=== PATIENT | female | born 1980 | race Caucasian/White ===

== ENCOUNTER 2017-06-04 14:46 | Emergency (ER) | payer MEDICAID ==
[2017-06-04 15:40] VITALS: BP 137/106
[2017-06-04] MEDS ORDERED: Acetaminophen/HYDROcodone 325-5 MG Tab PO ONE (16:47)
--- NOTE | 2017-06-04 16:51 | EDM.PDOC ---
ED HPI GENERAL MEDICAL PROBLEM - General Chief Complaint: Lower Extremity Injury/Pain Stated Complaint: RIGHT FOOT INJURY Time Seen by Provider: 06/04/17 16:44 Source of Information: Reports: Patient History Limitations: Reports: No Limitations - History of Present Illness INITIAL COMMENTS - FREE TEXT/NARRATIVE: Patient is a 36-year-old female who presents to the ED complaining of pain to the dorsal and plantar aspect of the right foot after stepping on a toy this past week. Patient states on Tuesday she stepped on the same toy while getting ready to go to bed. Throughout the course of the week she has been limping on the affected foot. Barely able to put any weight on it. Again night she stepped on the same toy and the symptoms have worsened. She has no prior injury to the affected foot. No bruising, swelling, open wounds present. She has been utilizing ice, ibuprofen, Tylenol, and pain cream with minimal relief. She offers no additional complaints. Right Feet Pain Score (Numeric/FACES): 4 - Related Data Allergies Allergy/AdvReac Type Severity Reaction Status Date / Time ciprofloxacin [From Cipro] Allergy Hives Verified 05/23/15 12:31 ciprofloxacin HCl Allergy Hives Verified 05/23/15 12:31 [From Cipro] nitrofurantoin Allergy Hives Verified 05/23/15 12:31 [From Macrobid] nitrofurantoin Allergy Hives Verified 05/23/15 12:31 macrocrystalline [From Macrobid] Sulfa (Sulfonamide Allergy Hives Verified 05/23/15 12:31 Antibiotics) venom-honey bee Allergy Shortness Verified 05/23/15 12:31 [bee venom (honey bee)] of Breath bee Allergy Shortness Uncoded 05/23/15 12:31 of Breath Home Meds: Home Meds Omeprazole [Prilosec] 20 mg PO DAILY #14 capsule. 10/11/14 [Rx] Past Medical History Respiratory History: Reports: Sleep Apnea Musculoskeletal History: Reports: Other (See Below) Other Musculoskeletal History: RIGHT KNEE SURGERY - Past Surgical History Other HEENT Surgeries/Procedures: nose surgery Female Surgical History: Reports: Section Social & Family History - Tobacco Use Smoking Status *Q: Current Some Day Smoker Years of Tobacco use: 1 Packs/Tins Daily: 0.1 Used Tobacco, but Quit: No Second Hand Smoke Exposure: No - Caffeine Use Caffeine Use: Reports: Coffee, Tea - Recreational Drug Use Recreational Drug Use: No Review of Systems - Review of Systems Review Of Systems: See Below Musculoskeletal: Reports: Foot Pain. Denies: Leg Pain Neurological: Reports: Difficulty Walking. Denies: Numbness, Tingling ED EXAM, GENERAL - Physical Exam Exam: See Below Exam Limited By: No Limitations General Appearance: Alert, WD/WN, No Apparent Distress Ears: Hearing Grossly Normal Nose: Normal Inspection Throat/Mouth: Normal Voice, No Airway Compromise Respiratory/Chest: No Respiratory Distress, No Accessory Muscle Use Cardiovascular: Normal Peripheral Pulses, Regular Rate, Rhythm Peripheral Pulses: 2+: Posterior Tibial (R) Extremities: Other (Right foot: No swelling, ecchymosis, bony abdomen is present. Increasing pain along metatarsals and also to the ball the foot. No open wounds present. No swelling noted to the ankle. Full range of motion ankle noted.) Neurological: Alert, Oriented, CN II-XII Intact, Normal Cognition, No Motor/ Sensory Deficits. No: Normal Gait Course - Vital Signs Last Recorded V/S: Last Vital Signs Temp 97.9 F 06/04/17 15:39 Pulse 92 06/04/17 15:39 Resp 20 06/04/17 15:39 BP 137/106 H 06/04/17 15:39 Pulse Ox 100 06/04/17 15:39 - Orders/Labs/Meds Orders: Active Orders 24 hr Category Date Time Status Foot Comp Min 3V Rt [CR] Stat Exams 06/04/17 16:47 Taken Meds: Medications Discontinued Medications Generic Name Dose Route Start Last Admin Trade Name Moy PRN Reason Stop Dose Admin Hydrocodone Bitart/Acetaminophen 1 tab 06/04/17 16:47 06/04/17 16:53 [place] 325-5 Mg PO 06/04/17 16:48 1 tab ONETIME ONE Administration - Re-Assessments/Exams Free Text/Narrative Re-Assessment/Exam: X-ray of the right foot ordered along with 1 [place] 5-325 tab ordered by mouth. X-ray of the right foot did not reveal any acute bony abnormalities. Final interpretation is pending. This was reviewed with Dr. Gomez. Discussed results of x-rays with patient. Sandeep wrap will be applied to the right foot. Crutches have been provided as well. She'll be discharged home with instructions as documented. Departure - Departure Time of Disposition: 18:05 Disposition: Home, Self-Care 01 Condition: Good Clinical Impression: Sprain of foot, right Qualifiers: Encounter type: initial encounter Qualified Code(s): S93.601A - Unspecified sprain of right foot, initial encounter - Discharge Information Instructions: Foot Sprain Referrals: Katerina Alvarado NP [Primary Care Provider] - Steve Gutierrez MD [Physician] - Forms: ED Department Discharge, ED Return to Work/School Form Additional Instructions: As discussed x-ray of the right foot did not reveal any acute bony abnormalities. Final interpretations pending. Treatment is symptomatic care including: Nonweightbearing for the next 3-5 days, ice to the affected area as needed, ibuprofen 600 mg and Tylenol 650 mg in alternating fashion every 6 hours , for severe pain not managed with the above therapies take tramadol 1 tablet every [address] this evening since receiving a sedative medication while in the ED. Do not drive while taking the tramadol. Follow-up with PCP this coming week. If symptoms persist orthopedic consultation mayb required. Refrain from any activities that cause worsening pain. Return to the ED as needed. - My Orders Last 24 Hours: My Active Orders 06/04/17 16:47 Foot Comp Min 3V Rt [CR] Stat - Assessment/Plan Last 24 Hours: My Active Orders 06/04/17 16:47 Foot Comp Min 3V Rt [CR] Stat
--- NOTE | 2017-06-06 12:49 | CR ---
Right foot: Four views of the right foot were obtained utilizing portable technique. Comparison: No prior foot study. Joint spaces are preserved. No calcaneal spurs are seen. No discrete fracture, dislocation or other bony abnormality is seen. Impression: 1. No abnormality is identified on four-view right foot exam. Diagnostic code #1
== END 2017-06-04 18:45 | disposition home or self-care (01) ==
LOC: JD.ED 14:46
DX: S93.601A Unspecified sprain of right foot, initial encounter (principal); F17.210 Nicotine dependence, cigarettes, uncomplicated; Z88.1 Allergy status to other antibiotic agents; Z91.030 Bee allergy status; Z88.2 Allergy status to sulfonamides; Z79.899 Other long term (current) drug therapy; W22.09XA Striking against other stationary object, initial encounter
CPT/HCPCS: 73630; 99283; A9270

== ENCOUNTER 2018-01-02 17:06 | Emergency (ER) | payer MEDICAID ==
[2018-01-02 17:16] VITALS: BP 136/105
[2018-01-02] MEDS ORDERED: Sodium Chloride 0.9% 10 ML Syringe FLUSH PRN ×2 (17:16→17:42)
[2018-01-02] MEDS ORDERED: Iopamidol 755 MG/ML 50 ML Bottle IVPUSH ONE (17:42)
[2018-01-02] MEDS ORDERED: Iopamidol 755 Mg/ML 100 ML Bottle IVPUSH ONE (17:42)
[2018-01-02] MEDS ORDERED: Sodium Chloride 0.9% 250 ML IV SCH (17:45)
--- NOTE | 2018-01-02 18:21 | CT ---
CT chest Technique: Multiple axial sections were obtained from above the lung apices inferiorly through the lung bases. Intravenous contrast was utilized. Study has been performed as a pulmonary angiogram protocol. Findings: Pulmonary arteries are well-opacified. No filling defects are seen to indicate pulmonary embolism. Mediastinum and hilar regions show no adenopathy or mass. No pericardial thickening is seen. Small portion of the visualized upper abdominal structures are within normal limits. Calcified granuloma is noted within the right lung base measuring 7.4 mm. Lungs otherwise are clear with no acute parenchymal change. No pleural effusions are seen. Bone window settings were reviewed which show no acute osseous abnormality is seen. Impression: 1. No findings of pulmonary embolism. 2. Incidental calcified granuloma within the right lung base. 3. No additional abnormality is appreciated on CT study of the chest. Diagnostic code #2
--- NOTE | 2018-01-02 18:55 | US ---
Right lower extremity deep venous ultrasound: Duplex and color flow imaging was obtained of the right common femoral, proximal greater saphenous, superficial femoral, popliteal, posterior tibial and peroneal veins. Left common femoral vein was also evaluated. Findings: Lack of phasic flow is seen within the peroneal vein but normal compression and augmentation is seen within the peroneal vein. Other veins show normal phasic flow, augmentation and compression. Impression: 1. No evidence of deep venous thrombosis within the right lower extremity or within the left common femoral vein. Diagnostic code #1
--- NOTE | 2018-01-02 18:58 | EDM.PDOC ---
ED HPI GENERAL MEDICAL PROBLEM - General Chief Complaint: Chest Pain Stated Complaint: BLOOD CLOT/CHEST PAINS Time Seen by Provider: 01/02/18 17:11 Source of Information: Reports: Patient History Limitations: Reports: No Limitations - History of Present Illness INITIAL COMMENTS - FREE TEXT/NARRATIVE: The patient presents with chest pain, shortness of breath, right leg pain and edema. The leg pain and edema she noticed on Tuesday. She did not injure her leg. She has no history of a DVT or PE. She has some chest pain that started yesterday and it is worse today. The pain is like pressure that is worse with deep breathing. She also feels short of breath with it. She has no fever, chills or cough. She has not been on any long car ride or plane ride. Onset: Gradual Duration: Day(s): (4) Location: Reports: Chest, Lower Extremity, Right Quality: Reports: Pressure Severity: Mild Improves with: Reports: None Worsens with: Reports: Breathing Associated Symptoms: Reports: Chest Pain, Shortness of Breath. Denies: Cough, Fever/Chills, Headaches, Nausea/Vomiting - Related Data Allergies Allergy/AdvReac Type Severity Reaction Status Date / Time chocolate flavor Allergy Anaphylactic Verified 01/02/18 17:17 Shock ciprofloxacin [From Cipro] Allergy Hives Verified 05/23/15 12:31 ciprofloxacin HCl Allergy Hives Verified 05/23/15 12:31 [From Cipro] lactose Allergy Hives Verified 01/02/18 17:17 nitrofurantoin Allergy Hives Verified 05/23/15 12:31 [From Macrobid] nitrofurantoin Allergy Hives Verified 05/23/15 12:31 macrocrystalline [From Macrobid] strawberry Allergy Hives Verified 01/02/18 17:17 Sulfa (Sulfonamide Allergy Hives Verified 05/23/15 12:31 Antibiotics) venom-honey bee Allergy Shortness Verified 05/23/15 12:31 [bee venom (honey bee)] of Breath bee Allergy Shortness Uncoded 05/23/15 12:31 of Breath Home Meds: Home Meds Omeprazole [Prilosec] 20 mg PO DAILY #14 capsule. 10/11/14 [Rx] Past Medical History Respiratory History: Reports: Sleep Apnea Musculoskeletal History: Reports: Other (See Below) Other Musculoskeletal History: RIGHT KNEE SURGERY - Past Surgical History Other HEENT Surgeries/Procedures: nose surgery Female Surgical History: Reports: Section Social & Family History - Tobacco Use Smoking Status *Q: Current Some Day Smoker Years of Tobacco use: 4 Packs/Tins Daily: 0.3 Used Tobacco, but Quit: No Second Hand Smoke Exposure: No - Caffeine Use Caffeine Use: Reports: Coffee - Recreational Drug Use Recreational Drug Use: No ED ROS GENERAL - Review of Systems Review Of Systems: See Below Constitutional: Reports: No Symptoms HEENT: Reports: No Symptoms Respiratory: Reports: Shortness of Breath Cardiovascular: Reports: Chest Pain Endocrine: Reports: No Symptoms GI/Abdominal: Reports: No Symptoms : Reports: No Symptoms Musculoskeletal: Reports: Other (Right leg pain and edema) ED EXAM, GENERAL - Physical Exam Exam: See Below Exam Limited By: No Limitations General Appearance: Alert, No Apparent Distress Ears: Normal External Exam Nose: Normal Inspection Head: Atraumatic, Normocephalic Neck: Normal Inspection Respiratory/Chest: No Respiratory Distress, Lungs Clear, Normal Breath Sounds Cardiovascular: Regular Rate, Rhythm, No Edema, No Murmur GI/Abdominal: Soft, Non-Tender, No Organomegaly, No Mass Back Exam: Normal Inspection Extremities: Other (Mild edema and pain upon palpation to the right leg. Good sensation and pulses distally) Neurological: Alert, Oriented, No Motor/Sensory Deficits EKG INTERPRETATION EKG Date: 01/02/18 Time: 17:24 Rhythm: NSR Rate (Beats/Min): 87 [place]: Normal P-Wave: Present QRS: Normal ST-T: Normal QT: Normal Course - Vital Signs Last Recorded V/S: Last Vital Signs Temp 98.7 F 01/02/18 17:09 Pulse 80 01/02/18 17:09 Resp 18 01/02/18 17:09 BP 136/105 H 01/02/18 17:09 Pulse Ox 97 01/02/18 17:09 - Orders/Labs/Meds Orders: Active Orders 24 hr Category Date Time Status Cardiac Monitoring [RC] . DIRECTED Care 01/02/18 17:16 Active EKG Documentation Completion [RC] STAT Care 01/02/18 17:16 Active Peripheral IV Care [RC] . DIRECTED Care 01/02/18 17:16 Active Sodium Chloride 0.9% [Normal Saline] 250 ml Med 01/02/18 17:45 Active IV ASDIRECTED Sodium Chloride 0.9% [Saline Flush] Med 01/02/18 17:16 Active 10 ml FLUSH ASDIRECTED PRN Sodium Chloride 0.9% [Saline Flush] Med 01/02/18 17:42 Active 10 ml FLUSH ONETIME PRN Peripheral IV Insertion Adult [OM.PC] Stat Oth 01/02/18 17:16 Ordered Medication Orders Sodium Chloride (Normal Saline) 250 mls @ 80 mls/min IV ASDIRECTED PAULIE Last Admin: 01/02/18 17:59 Dose: 80 mls/min Sodium Chloride (Saline Flush) 10 ml FLUSH ASDIRECTED PRN PRN Reason: Keep Vein Open Last Admin: 01/02/18 17:33 Dose: 10 ml Sodium Chloride (Saline Flush) 10 ml FLUSH ONETIME PRN PRN Reason: IV FLUSH Last Admin: 01/02/18 17:58 Dose: 10 ml Labs: Laboratory Tests 01/02/18 01/02/18 01/02/18 Range/Units 17:25 17:25 17:25 WBC 6.74 (3.98-10.04) K/mm3 RBC 4.38 (3.98-5.22) M/mm3 Hgb 13.5 (11.2-15.7) gm/L Hct 40.4 (34.1-44.9) % MCV 92.2 (79.4-94.8) fl MCH 30.8 (25.6-32.2) pg MCHC 33.4 (32.2-35.5) g/dl RDW Std Deviation 43.0 (36.4-46.3) fL Plt Count 217 (182-369) K/mm3 MPV 9.2 L (9.4-12.3) fl Neut % (Auto) 51.6 (34.0-71.1) % Lymph % (Auto) 35.6 (19.3-51.7) % [place] % (Auto) 10.5 (4.7-12.5) % Eos % (Auto) 1.6 (0.7-5.8) Baso % (Auto) 0.6 (0.1-1.2) % Neut # (Auto) 3.47 (1.56-6.13) K/mm3 Lymph # (Auto) 2.40 (1.18-3.74) K/mm3 [place] # (Auto) 0.71 H (0.24-0.36) K/mm3 Eos # (Auto) 0.11 (0.04-0.36) K/mm3 Baso # (Auto) 0.04 (0.01-0.08) K/mm3 D-Dimer, Quantitative 0.51 H (0.19-0.50) mg/L Sodium 137 (136-145) mEq/L Potassium 3.5 (3.5-5.1) mEq/L Chloride 101 (98-107) mEq/L Carbon Dioxide 25 (21-32) mEq/L Anion Gap 14.5 (5-15) BUN 15 (7-18) mg/dL Creatinine 0.8 (0.55-1.02) mg/dL Est Cr Clr Drug Dosing 79.65 mL/min Estimated GFR (MDRD) > 60 (>60) mL/min BUN/Creatinine Ratio 18.8 H (14-18) Glucose 93 (74-106) mg/dL Calcium 9.2 (8.5-10.1) mg/dL Total Bilirubin 0.3 (0.2-1.0) mg/dL AST 75 H (15-37) U/L ALT 51 (14-59) U/L Alkaline Phosphatase 64 (46-116) U/L Troponin I < 0.017 (0.00-0.056) ng/mL Total Protein 7.1 (6.4-8.2) g/dl Albumin 4.1 (3.4-5.0) g/dl Globulin 3.0 gm/dL Albumin/Globulin Ratio 1.4 (1-2) HCG, Qual (NEGATIVE) 01/02/18 Range/Units 17:25 WBC (3.98-10.04) K/mm3 RBC (3.98-5.22) M/mm3 Hgb (11.2-15.7) gm/L Hct (34.1-44.9) % MCV (79.4-94.8) fl MCH (25.6-32.2) pg MCHC (32.2-35.5) g/dl RDW Std Deviation (36.4-46.3) fL Plt Count (182-369) K/mm3 MPV (9.4-12.3) fl Neut % (Auto) (34.0-71.1) % Lymph % (Auto) (19.3-51.7) % [place] % (Auto) (4.7-12.5) % Eos % (Auto) (0.7-5.8) Baso % (Auto) (0.1-1.2) % Neut # (Auto) (1.56-6.13) K/mm3 Lymph # (Auto) (1.18-3.74) K/mm3 [place] # (Auto) (0.24-0.36) K/mm3 Eos # (Auto) (0.04-0.36) K/mm3 Baso # (Auto) (0.01-0.08) K/mm3 D-Dimer, Quantitative (0.19-0.50) mg/L Sodium (136-145) mEq/L Potassium (3.5-5.1) mEq/L Chloride (98-107) mEq/L Carbon Dioxide (21-32) mEq/L Anion Gap (5-15) BUN (7-18) mg/dL Creatinine (0.55-1.02) mg/dL Est Cr Clr Drug Dosing mL/min Estimated GFR (MDRD) (>60) mL/min BUN/Creatinine Ratio (14-18) Glucose (74-106) mg/dL Calcium (8.5-10.1) mg/dL Total Bilirubin (0.2-1.0) mg/dL AST (15-37) U/L ALT (14-59) U/L Alkaline Phosphatase (46-116) U/L Troponin I (0.00-0.056) ng/mL Total Protein (6.4-8.2) g/dl Albumin (3.4-5.0) g/dl Globulin gm/dL Albumin/Globulin Ratio (1-2) HCG, Qual Negative (NEGATIVE) Meds: Medications Generic Name Dose Route Start Last Admin Trade Name Freq PRN Reason Stop Dose Admin Sodium Chloride 250 mls @ 80 mls/min 01/02/18 17:45 01/02/18 17:59 Normal Saline IV 80 mls/min ASDIRECTED PAULIE Administration Sodium Chloride 10 ml 01/02/18 17:16 01/02/18 17:33 Saline Flush FLUSH 10 ml ASDIRECTED PRN Administration Keep Vein Open Sodium Chloride 10 ml 01/02/18 17:42 01/02/18 17:58 Saline Flush FLUSH 10 ml ONETIME PRN Administration IV FLUSH Discontinued Medications Generic Name Dose Route Start Last Admin Trade Name Romelq PRN Reason Stop Dose Admin Iopamidol 100 ml 01/02/18 17:42 01/02/18 17:58 Isovue-370 (76%) IVPUSH 01/02/18 17:43 100 ml ONETIME ONE Administration Iopamidol 50 ml 01/02/18 17:42 01/02/18 17:58 Isovue-370 (76%) IVPUSH 01/02/18 17:43 50 ml ONETIME ONE Administration - Re-Assessments/Exams Free Text/Narrative Re-Assessment/Exam: 01/02/18 18:56 I ordered an IV saline lock, EKG, CT chest angio, US of her right leg and labs. Her EKG shows a NSR with no acute changes. Her chest CT shows no findings of pulmonary embolism, incidental calcified granuloma within the right lung base, and no additional abnormality is appreciated on CT study of the chest. Her CBC and CMP look good. Her troponin is negative. Her D-dimer was slightly elevated at 0.51. I am waiting for her US report. 01/02/18 19:00 The US shows no evidence of DVT. Departure - Departure Time of Disposition: 19:05 Disposition: Home, Self-Care 01 Condition: Good Clinical Impression: Pleurisy, Leg edema, right Referrals: Katerina Alvarado DIRECTOR OF STRATEGY & MOBILE [Primary Care Provider] - 1 Week Forms: ED Department Discharge Additional Instructions: Take motrin or aleve for your chest pain. Elevated your leg as much as you can for the next 2 days. Follow up with Suni Alvarado. Please return if you are worse. - My Orders Last 24 Hours: My Active Orders 01/02/18 17:16 Cardiac Monitoring [RC] . DIRECTED EKG Documentation Completion [RC] STAT Peripheral IV Care [RC] . DIRECTED Sodium Chloride 0.9% [Saline Flush] 10 ml FLUSH ASDIRECTED PRN Peripheral IV Insertion Adult [OM.PC] Stat 01/02/18 17:42 Sodium Chloride 0.9% [Saline Flush] 10 ml FLUSH ONETIME PRN 01/02/18 17:45 Sodium Chloride 0.9% [Normal Saline] 250 ml IV ASDIRECTED - Assessment/Plan Last 24 Hours: My Active Orders 01/02/18 17:16 Cardiac Monitoring [RC] . DIRECTED EKG Documentation Completion [RC] STAT Peripheral IV Care [RC] . DIRECTED Sodium Chloride 0.9% [Saline Flush] 10 ml FLUSH ASDIRECTED PRN Peripheral IV Insertion Adult [OM.PC] Stat 01/02/18 17:42 Sodium Chloride 0.9% [Saline Flush] 10 ml FLUSH ONETIME PRN 01/02/18 17:45 Sodium Chloride 0.9% [Normal Saline] 250 ml IV ASDIRECTED
== END 2018-01-02 19:15 | disposition home or self-care (01) ==
LOC: JD.ED 17:06
DX: R09.1 Pleurisy (principal); R60.0 Localized edema; F17.210 Nicotine dependence, cigarettes, uncomplicated; Z88.1 Allergy status to other antibiotic agents; Z91.011 Allergy to milk products; Z91.018 Allergy to other foods; Z88.2 Allergy status to sulfonamides; Z88.8 Allergy status to other drugs, medicaments and biological substances; Z91.030 Bee allergy status; Z79.899 Other long term (current) drug therapy
CPT/HCPCS: 36415; 71275; 80053; 84484; 84703; 85025; 85379; 93005; 93971; 99285; J7050; Q9967; 93010; 99284-25

== ENCOUNTER 2018-01-03 16:35 | Emergency (ER) | payer MEDICAID ==
[2018-01-03 16:50] VITALS: BP 137/102
--- NOTE | 2018-01-03 17:12 | EDM.PDOC ---
ED HPI GENERAL MEDICAL PROBLEM - General Chief Complaint: Lower Extremity Injury/Pain Stated Complaint: R LEG POSS BLOOD CLOT Time Seen by Provider: 01/03/18 16:58 Source of Information: Reports: Patient History Limitations: Reports: No Limitations - History of Present Illness INITIAL COMMENTS - FREE TEXT/NARRATIVE: Patient is a 37-year-old female presents ED complaining of increased swelling and pain to the right lower extremity. Patient was seen in the ED yesterday with similar findings. Patient's been having some chest pain with shortness of breath. Her d-dimer was elevated. She does have an IUD in place and she smokes a half pack per day. She has no history of DVT or PE. CT of the chest and ultrasound of the lower leg were negative. She is concerned she has a DVT. Chest pain and shortness of breath have not changed. She denies any fever, increased wamrth or redness to the lower extremity, or any additional complaints. Right Lower Leg Pain Score (Numeric/FACES): 6 - Related Data Allergies Allergy/AdvReac Type Severity Reaction Status Date / Time chocolate flavor Allergy Anaphylactic Verified 01/03/18 16:44 Shock ciprofloxacin [From Cipro] Allergy Hives Verified 01/03/18 16:44 ciprofloxacin HCl Allergy Hives Verified 01/03/18 16:44 [From Cipro] lactose Allergy Hives Verified 01/03/18 16:44 nitrofurantoin Allergy Hives Verified 01/03/18 16:44 [From Macrobid] nitrofurantoin Allergy Hives Verified 01/03/18 16:44 macrocrystalline [From Macrobid] strawberry Allergy Hives Verified 01/03/18 16:44 Sulfa (Sulfonamide Allergy Hives Verified 01/03/18 16:44 Antibiotics) venom-honey bee Allergy Shortness Verified 01/03/18 16:44 [bee venom (honey bee)] of Breath bee Allergy Shortness Uncoded 05/23/15 12:31 of Breath Home Meds: Home Meds Omeprazole [Prilosec] 20 mg PO DAILY #14 capsule. 10/11/14 [Rx] Past Medical History Respiratory History: Reports: Sleep Apnea Musculoskeletal History: Reports: Other (See Below) Other Musculoskeletal History: RIGHT KNEE SURGERY - Past Surgical History Other HEENT Surgeries/Procedures: nose surgery Female Surgical History: Reports: Section Social & Family History - Tobacco Use Smoking Status *Q: Current Every Day Smoker Years of Tobacco use: 18 Packs/Tins Daily: 0.5 Used Tobacco, but Quit: No Second Hand Smoke Exposure: No - Caffeine Use Caffeine Use: Reports: Coffee - Recreational Drug Use Recreational Drug Use: No Review of Systems - Review of Systems Review Of Systems: ROS reveals no pertinent complaints other than HPI. ED EXAM, GENERAL - Physical Exam Exam: See Below Exam Limited By: No Limitations General Appearance: Alert, WD/WN, Anxious Ears: Hearing Grossly Normal Nose: Normal Inspection Throat/Mouth: Normal Voice, No Airway Compromise Neck: Normal Inspection, Supple Respiratory/Chest: No Respiratory Distress, Lungs Clear, Normal Breath Sounds, No Accessory Muscle Use Cardiovascular: Normal Peripheral Pulses, Regular Rate, Rhythm Peripheral Pulses: 4+: Posterior Tibial (L), Posterior Tibial (R) Extremities: Other (Mild swelling noted to the right lower extremity with pain to the medial aspect of the right calf.) Neurological: Alert, Oriented, CN II-XII Intact, Normal Cognition, No Motor/ Sensory Deficits Psychiatric: Normal Affect, Normal Mood Skin Exam: Warm, Dry, Intact, Normal Color, No Rash Course - Vital Signs Last Recorded V/S: Last Vital Signs Temp 99.2 F 01/03/18 16:44 Pulse 85 01/03/18 16:44 Resp 15 01/03/18 16:44 BP 137/102 H 01/03/18 16:44 Pulse Ox 100 01/03/18 16:44 - Re-Assessments/Exams Free Text/Narrative Re-Assessment/Exam: Review previous ED visit yesterday and all reports and labs were obtained. Patient is concerned she may have a blood clot thus we'll order additional ultrasound of the right lower extremity. No additional blood work required. Feel duplex lower extremity right. Impression: No evidence of deep venous thrombosis within the right lower extremity or left common femoral vein. Normal- appearing right inguinal lymph nodes. No popliteal cyst. Will be discharged home with instructions as documented. Departure - Departure Time of Disposition: 19:12 Disposition: Home, Self-Care 01 Condition: Good Clinical Impression: Right leg swelling, Pleurisy - Discharge Information Instructions: Pleurisy, [id number] Referrals: Katerina Alvarado NP [Primary Care Provider] - Forms: ED Department Discharge Additional Instructions: Take motrin or aleve for your chest pain. Elevated your leg as much as you can for the next 2 days. Follow up with Suni Alvarado. Please return if you are worse.
--- NOTE | 2018-01-03 18:59 | US ---
Right lower extremity deep venous ultrasound: Duplex and color flow imaging was obtained of the right common femoral, proximal greater saphenous, superficial femoral, popliteal, posterior tibial and peroneal veins. Left common femoral vein was also evaluated. Comparison: Previous right lower extremity venous ultrasound of 01/02/18. Findings: Normal phasic flow, augmentation and compression is seen. Lymph nodes are seen within the right groin which are normal by ultrasound exam. No popliteal cyst is seen. Impression: 1. No evidence of deep venous thrombosis within the right lower extremity or left common femoral vein. 2. Normal appearing right inguinal lymph nodes. No popliteal cyst. Diagnostic code #1
== END 2018-01-03 19:20 | disposition home or self-care (01) ==
LOC: JD.ED 16:35
DX: R09.1 Pleurisy (principal); R22.41 Localized swelling, mass and lump, right lower limb; F17.210 Nicotine dependence, cigarettes, uncomplicated; Z91.018 Allergy to other foods; Z88.1 Allergy status to other antibiotic agents; Z91.011 Allergy to milk products; Z88.2 Allergy status to sulfonamides; Z91.030 Bee allergy status; Z79.899 Other long term (current) drug therapy
CPT/HCPCS: 93971-26-RT; 93971-RT; 99285-25

== ENCOUNTER 2018-10-27 09:32 | Emergency (ER) | payer MEDICAID ==
[2018-10-27 09:51] VITALS: BP 125/87
[2018-10-27] MEDS ORDERED: Sodium Chloride 0.9% 1,000 ML IV ONE (10:17)
[2018-10-27] MEDS ORDERED: Ondansetron 4 MG/2 ML SDV IVPUSH ONE (10:18)
[2018-10-27] MEDS ORDERED: Hyoscyamine 0.125 MG Tab.SL SL ONE (10:58)
[2018-10-27] MEDS ORDERED: Metoclopramide 10 MG/2 ML SDV IVPUSH ONE (10:58)
[2018-10-27] MEDS ORDERED: Iopamidol 612 MG/ML 100 ML Bottle IVPUSH ONE (11:22)
[2018-10-27] MEDS ORDERED: Sodium Chloride 0.9% 10 ML Syringe FLUSH PRN (11:22)
[2018-10-27] MEDS ORDERED: Diatrizoate Meglumine/Diatrizoate Sodium 37% 120 ML Bottle PO ONE (11:22)
--- NOTE | 2018-10-27 13:14 | CT ---
CT abdomen and pelvis Technique: Multiple axial sections were obtained from top of the liver inferiorly through the pubic symphysis. Intravenous and oral contrast was utilized. Comparison: Prior CT abdomen and pelvis exam of 01/06/18. Findings: Small portion of the visualized lung bases are clear. Liver contains no focal parenchymal abnormality. Spleen appears within normal limits. Right adrenal gland shows a small nodule measuring 7 mm which is most likely incidental. Pancreas is within normal limits. Kidneys show symmetric contrast enhancement without hydronephrosis or mass. Aorta shows no aneurysm. Gallbladder contains no calcified gallstones. No retroperitoneal adenopathy or mesenteric abnormalities are seen. Appendix is seen which is normal in size. No pelvic mass or adenopathy is seen. IUD is present within the endometrial cavity of the uterus. Delayed images show contrast within the distal ureters and within the bladder. Bone window settings were reviewed which appear within normal limits for the patient's age. Impression: 1. IUD present within the endometrial cavity of the uterus. 2. Small nodule within the right adrenal gland believed to be incidental. 3. Other normal findings as noted above. Nothing acute is appreciated. No significant change from previous study is seen. Diagnostic code #2
--- NOTE | 2018-10-27 13:25 | EDM.PDOC ---
ED HPI GENERAL MEDICAL PROBLEM - General Chief Complaint: Abdominal Pain Stated Complaint: RT SIDE ABD PAIN Time Seen by Provider: 10/27/18 10:21 Source of Information: Reports: Patient, RN Notes Reviewed History Limitations: Reports: No Limitations - History of Present Illness INITIAL COMMENTS - FREE TEXT/NARRATIVE: Patient is a 37-year-old female who presents to the ED for evaluation of sharp intermittent right upper quadrant pain. She states she has never felt this before and the pain started earlier this a.m. the patient states she ate breakfast which consisted of a student enrolled 4 ounces of orange juice and a diet Coke around 8 AM or so this morning. She stated this closely after having finished her breakfast that she developed this sudden pain in her right upper quadrant. She states that it comes and goes in surges and feels somewhat like a lightning bolt type pain. She did not take any medications for this. She would rate this pain at a 10 out of 10 she denies having any chance of being . She does say that the pain did worsen with eating but this was just one instance of pain. Her primary care provider is Katerina Alvarado. She states that she is feeling nausea with this pain as well. Right Upper Abdomen Pain Score (Numeric/FACES): 10 - Related Data Allergies Allergy/AdvReac Type Severity Reaction Status Date / Time chocolate flavor Allergy Anaphylactic Verified 10/27/18 09:51 Shock ciprofloxacin [From Cipro] Allergy Hives Verified 10/27/18 09:51 ciprofloxacin HCl Allergy Hives Verified 10/27/18 09:51 [From Cipro] lactose Allergy Hives Verified 10/27/18 09:51 nitrofurantoin Allergy Hives Verified 10/27/18 09:51 [From Macrobid] nitrofurantoin Allergy Hives Verified 10/27/18 09:51 macrocrystalline [From Macrobid] strawberry Allergy Hives Verified 10/27/18 09:51 Sulfa (Sulfonamide Allergy Hives Verified 10/27/18 09:51 Antibiotics) venom-honey bee Allergy Shortness Verified 10/27/18 09:51 [bee venom (honey bee)] of Breath bee Allergy Shortness Uncoded 05/23/15 12:31 of Breath Home Meds: Home Meds Omeprazole [Prilosec] 20 mg PO DAILY #14 capsule. 10/11/14 [Rx] Hyoscyamine Sulfate 0.125 mg PO ASDIRECTED PRN #28 tab.rapdis 10/27/18 [Rx] Ondansetron [Zofran ODT] 4 mg PO Q6H PRN #28 tab.dis 10/27/18 [Rx] Past Medical History Respiratory History: Reports: Sleep Apnea Musculoskeletal History: Reports: Other (See Below) Other Musculoskeletal History: RIGHT KNEE SURGERY - Past Surgical History Other HEENT Surgeries/Procedures: nose surgery Female Surgical History: Reports: Section Social & Family History - Tobacco Use Smoking Status *Q: Current Some Day Smoker Years of Tobacco use: 10 Packs/Tins Daily: 0.1 - Caffeine Use Caffeine Use: Reports: Coffee, Soda - Recreational Drug Use Recreational Drug Use: No ED ROS GENERAL - Review of Systems Review Of Systems: See Below Constitutional: Reports: No Symptoms HEENT: Reports: No Symptoms Respiratory: Reports: No Symptoms Cardiovascular: Reports: No Symptoms Endocrine: Reports: No Symptoms GI/Abdominal: Reports: Abdominal Pain (ruq), Nausea. Denies: Constipation, Diarrhea, Vomiting : Reports: No Symptoms Musculoskeletal: Reports: No Symptoms Skin: Reports: No Symptoms Neurological: Reports: No Symptoms Psychiatric: Reports: No Symptoms ED EXAM, GI/ABD - Physical Exam Exam: See Below Exam Limited By: No Limitations General Appearance: Alert, WD/WN, No Apparent Distress Ears: Normal External Exam Nose: Normal Inspection Throat/Mouth: Normal Inspection, Normal Oropharynx, No Airway Compromise Head: Atraumatic, Normocephalic Neck: Normal Inspection Respiratory/Chest: No Respiratory Distress, Lungs Clear, Normal Breath Sounds, No Accessory Muscle Use, Chest Non-Tender Cardiovascular: Normal Peripheral Pulses, Regular Rate, Rhythm, No Murmur GI/Abdominal Exam: Normal Bowel Sounds, Soft, No Distention, No Mass, Tender ( Exquisite tenderness in right upper quadrant, Muller sign is positive. No tenderness in the anywhere else in her abdomen). No: Rigid, Rebound Extremities: Normal Inspection, No Pedal Edema Neurological: Alert, Oriented, Normal Cognition, No Motor/Sensory Deficits Psychiatric: Normal Affect, Normal Mood Skin Exam: Warm, Dry, Intact, Normal Color, No Rash Course - Vital Signs Last Recorded V/S: Last Vital Signs Temp 98.7 F 10/27/18 09:48 Pulse 94 10/27/18 09:48 Resp 20 10/27/18 09:48 BP 125/87 10/27/18 09:48 Pulse Ox 98 10/27/18 09:48 - Orders/Labs/Meds Labs: Laboratory Tests 10/27/18 10/27/18 10/27/18 Range/Units 10:10 10:10 10:10 WBC 5.95 (3.98-10.04) K/mm3 RBC 4.87 (3.98-5.22) M/mm3 Hgb 15.0 (11.2-15.7) gm/L Hct 45.2 H (34.1-44.9) % MCV 92.8 (79.4-94.8) fl MCH 30.8 (25.6-32.2) pg MCHC 33.2 (32.2-35.5) g/dl RDW Std Deviation 43.0 (36.4-46.3) fL Plt Count 303 (182-369) K/mm3 MPV 9.0 L (9.4-12.3) fl Neutrophils % (Manual) 58 (40-60) % Band Neutrophils % 0 (0-10) % Lymphocytes % (Manual) 36 (20-40) % Atypical Lymphs % 0 % Monocytes % (Manual) 6 (2-10) % Eosinophils % (Manual) 0 L (0.7-5.8) % Basophils % (Manual) 0 L (0.1-1.2) Platelet Estimate Adequate RBC Morph Comment Normal Sodium 141 (136-145) mEq/L Potassium 3.6 (3.5-5.1) mEq/L Chloride 102 (98-107) mEq/L Carbon Dioxide 27 (21-32) mEq/L Anion Gap 15.6 H (5-15) BUN 17 (7-18) mg/dL Creatinine 1.0 (0.55-1.02) mg/dL Est Cr Clr Drug Dosing 66.51 mL/min Estimated GFR (MDRD) > 60 (>60) mL/min BUN/Creatinine Ratio 17.0 (14-18) Glucose 106 (74-106) mg/dL Calcium 9.3 (8.5-10.1) mg/dL Total Bilirubin 0.3 (0.2-1.0) mg/dL AST 23 (15-37) U/L ALT 37 (14-59) U/L Alkaline Phosphatase 77 (46-116) U/L C-Reactive Protein 0.4 (<1.0) mg/dL Total Protein 7.9 (6.4-8.2) g/dl Albumin 4.2 (3.4-5.0) g/dl Globulin 3.7 gm/dL Albumin/Globulin Ratio 1.1 (1-2) Lipase 179 (73-393) U/L HCG, Qual Negative (NEGATIVE) Meds: Medications Discontinued Medications Generic Name Dose Route Start Last Admin Trade Name Freq PRN Reason Stop Dose Admin Diatrizoate Meglum/Diatrizoate Sod 120 ml 10/27/18 11:22 10/27/18 12:22 Gastrografin 37% PO 10/27/18 11:23 90 ml ONETIME ONE Administration Hyoscyamine 0.125 mg 10/27/18 10:58 10/27/18 11:08 Hyomax-Sl SL 10/27/18 10:59 0.125 mg ONETIME ONE Administration Sodium Chloride 1,000 mls @ 150 mls/hr 10/27/18 10:17 10/27/18 10:28 Normal Saline IV 10/27/18 16:56 150 mls/hr ONETIME ONE Administration Iopamidol 100 ml 10/27/18 11:22 Isovue-300 (61%) IVPUSH 10/27/18 11:23 ONETIME ONE Metoclopramide HCl 10 mg 10/27/18 10:58 10/27/18 11:08 Reglan IVPUSH 10/27/18 10:59 10 mg ONETIME ONE Administration Ondansetron HCl 4 mg 10/27/18 10:18 10/27/18 10:28 Zofran IVPUSH 10/27/18 10:19 4 mg ONETIME ONE Administration Sodium Chloride 10 ml 10/27/18 11:22 10/27/18 12:22 Saline Flush FLUSH 10 ml ONETIME PRN Administration IV FLUSH - Re-Assessments/Exams Free Text/Narrative Re-Assessment/Exam: 10/27/18 11:10 Pt presents to the ED for the evaluation of RUQ pain. I have ordered Abdominal CT w contrast as the patient has eaten in the last 6 hours, 1 tab of Levsin, and 10mg IV reglan, and she states the Zofran provided little relief. CBC,CMP, lipase, CRP, HCG, 4mg IV Zofran and IV bolus for initial management. Initial labs were entered by triage nurse on protocol. 10/27/18 13:[address] showed an IUD within the endometrial cavity of the uterus in good position. Small nodule within the right adrenal gland believed to be incidental. Other normal findings as noting above nothing acute is appreciated. The CT did not show any type of calcified gallstones in the gallbladder. She states that the Levsin did provide some good pain relief for her. I will send her with a few tabs of this for over the weekend with the recommendation that she follows up with her primary care provider for further evaluation for possible ultrasound versus HIDA scan for further management. I am suspicious if there is a little bit of sludge in her gallbladder that did not show up on the CT scan today that may be causing her pain. Departure - Departure Time of Disposition: 13:38 Disposition: Home, Self-Care 01 Condition: Fair Clinical Impression: RUQ pain - Discharge Information *PRESCRIPTION DRUG MONITORING PROGRAM REVIEWED*: No *COPY OF PRESCRIPTION DRUG MONITORING REPORT IN PATIENT LAURIE: No Prescriptions: Hyoscyamine Sulfate 0.125 mg PO ASDIRECTED PRN #28 tab.rapdis PRN Reason: Pain Ondansetron [Zofran ODT] 4 mg PO Q6H PRN #28 tab.dis PRN Reason: Nausea Instructions: Gallbladder Nuclear Scan Referrals: Katerina Alvarado NP [Primary Care Provider] - Forms: ED Department Discharge Additional Instructions: You have been evaluated in the ED today for your right upper quadrant pain. Recommend that you take the Levsin tablets at the onset of pain, then 15 minutes after for continued pain. Please take the Zofran under your tongue every 6 hours as needed for signs of nausea. Recommend that you follow up with your primary care doctor early next week for further evaluation which may include gallbladder ultrasound or HIDA scan. Your CT did not demonstrate any gallstones in your gallbladder, however there could be some sludge in your gallbladder causing some of your pain. Please return to the ED if her symptoms change or worsen.
== END 2018-10-27 13:56 | disposition home or self-care (01) ==
LOC: JD.ED 09:32
DX: R10.11 Right upper quadrant pain (principal); F17.210 Nicotine dependence, cigarettes, uncomplicated; Z79.899 Other long term (current) drug therapy; Z88.2 Allergy status to sulfonamides; Z91.030 Bee allergy status; Z91.018 Allergy to other foods; Z88.8 Allergy status to other drugs, medicaments and biological substances; Z88.1 Allergy status to other antibiotic agents; Z91.011 Allergy to milk products
CPT/HCPCS: 36415; 74177; 80053; 83690; 84703; 85007; 85027; 86140; 96361; 96374; 96375; 99284; A9270; J2405; J2765; J7040; Q9963

== ENCOUNTER 2018-10-29 10:05 | Emergency (ER) | payer MEDICAID ==
[2018-10-29 10:21] VITALS: BP 128/90
[2018-10-29] MEDS ORDERED: Ondansetron 4 MG/2 ML SDV IVPUSH ONE (10:40)
[2018-10-29] MEDS ORDERED: HYDROmorphone 1 MG/ML Syringe IVPUSH ONE (10:40)
[2018-10-29] MEDS ORDERED: Lactated Ringers 1,000 ML IV ONE (10:41)
--- NOTE | 2018-10-29 10:45 | EDM.PDOC ---
ED HPI GENERAL MEDICAL PROBLEM - General Chief Complaint: Abdominal Pain Stated Complaint: RT SIDE PAIN IS WORSE Time Seen by Provider: 10/29/18 10:19 Source of Information: Reports: Patient, Old Records (ED visit 10/27/2018), RN Notes Reviewed History Limitations: Reports: Other (Somewhat hostile) - History of Present Illness INITIAL COMMENTS - FREE TEXT/NARRATIVE: Review of the medical records indicates the patient was seen in this ED 2 days ago, 10/27/2018, for intermittent sharp right upper quadrant pain that began that morning, after she had breakfast. She had associated nausea, but no emesis. On examination, she had exquisite right upper quadrant tenderness, as well as a Muller's sign. A CBC, CMP, CRP, lipase level, quantitative hCG, and a CT scan of the abdomen and pelvis with oral and IV contrast were all unremarkable. The patient was discharged home with a prescription for Levsin, and instructed to follow-up, to arrange for an outpatient ultrasound of the right upper quadrant and a HIDA scan. The patient states that she contacted the office of her PCP after she was discharged, and that a HIDA scan is scheduled for this coming , 2018. She is not sure if an ultrasound is also scheduled. The patient states that she filled her prescription for Levsin, and has been taking it, however, she now returns to the ED, stating that her pain has persisted. She describes it as an electric bolt shock felt in the right upper quadrant, radiating through to her right scapular area. When present, it is only momentary, but the frequency is increasing. She states it hit has occurred 5 times just here in the ED. She is unsure if it is related to eating, as she has decreased her oral intake ever since Tuesday, however, it is made worse with walking and with bumps in the road. She states that she developed a fever, up to 100.9, yesterday morning, although she is found to be afebrile here in the ED. She has had nausea and 3 episodes of emesis over the past 24 hours. She also reports that she developed watery, non-bloody diarrhea this past , 10/26/2018, before the onset of her right upper quadrant abdominal pain. The patient reports that she had similar symptoms several years ago, perhaps around 2014, and that a workup at that time was negative, although there was some suspicion that her pain was gallbladder related. The patient reports that she was on an antibiotic, whose name she does not recall, for 5 days, about 3 weeks ago. Patient's PCP is Katerina Alvarado. Right Upper Abdomen Pain Score (Numeric/FACES): 8 - Related Data Allergies Allergy/AdvReac Type Severity Reaction Status Date / Time chocolate flavor Allergy Anaphylactic Verified 10/29/18 10:14 Shock ciprofloxacin [From Cipro] Allergy Hives Verified 10/29/18 10:14 ciprofloxacin HCl Allergy Hives Verified 10/29/18 10:14 [From Cipro] lactose Allergy Hives Verified 10/29/18 10:14 nitrofurantoin Allergy Hives Verified 10/29/18 10:14 [From Macrobid] nitrofurantoin Allergy Hives Verified 10/29/18 10:14 macrocrystalline [From Macrobid] strawberry Allergy Hives Verified 10/29/18 10:14 Sulfa (Sulfonamide Allergy Hives Verified 10/29/18 10:14 Antibiotics) venom-honey bee Allergy Shortness Verified 10/29/18 10:14 [bee venom (honey bee)] of Breath bee Allergy Shortness Uncoded 05/23/15 12:31 of Breath Home Meds: Home Meds Omeprazole [Prilosec] 20 mg PO DAILY #14 capsule. 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 (Approximate): Other (See Below) (Has an IUD) Endocrine/Metabolic History: Reports: Obesity/BMI 30+ - Past Surgical History HEENT Surgical History: Reports: Naso-Sinus Surgery (Rhinoplasty) Other HEENT Surgeries/Procedures: nose surgery Female Surgical History: Reports: Section (x 2) Musculoskeletal Surgical History: Reports: Arthroscopic Procedure (right knee) Social & Family History - Tobacco Use Smoking Status *Q: Current Every Day Smoker Years of Tobacco use: 20 Packs/Tins Daily: 0.2 - Caffeine Use Caffeine Use: Reports: Coffee - Alcohol Use Alcohol Use History: Yes Alcohol Use Frequency: Socially - Recreational Drug Use Recreational Drug Use: No - Living Situation & Occupation Living situation: Reports: Single, with Family (2 kids) 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 ED EXAM, GI/ABD - Physical Exam Exam: See Below Exam Limited By: No Limitations General Appearance: Alert, WD/WN, Mild Distress (Appears uncomfortable) Eyes: Bilateral: Normal Appearance, EOMI Ears: Normal External Exam, Hearing Grossly Normal Nose: Normal Inspection Throat/Mouth: Normal Inspection, Normal Lips, Normal Voice, No Airway Compromise Head: Atraumatic, Normocephalic Neck: Normal Inspection, Full Range of Motion Respiratory/Chest: No Respiratory Distress, Lungs Clear, Normal Breath Sounds, No Accessory Muscle Use Cardiovascular: Normal Peripheral Pulses, Regular Rate, Rhythm, No Gallop, No JVD, No Murmur, No Rub GI/Abdominal Exam: Normal Bowel Sounds, Soft, No Organomegaly, No Distention, No Abnormal Bruit, No Mass, Tender (Exquisite, right upper quadrant only. Nontender elsewhere. True Muller's sign present.) (Female) Exam: Deferred Rectal (Female) Exam: Deferred Back Exam: Normal Inspection, Full Range of Motion, CVA Tenderness (R) ( Progression induces right upper quadrant pain), Other (The patient confirms that the pain radiates to her right scapular area). No: CVA Tenderness (L) Extremities: Normal Inspection, Normal Range of Motion, No Pedal Edema, Normal Capillary Refill Neurological: Alert, Oriented, Normal Cognition, No Motor/Sensory Deficits Psychiatric: Normal Affect Skin Exam: Warm, Dry, Intact, Normal Color, No Rash Course - Vital Signs Last Recorded V/S: Last Vital Signs Temp 37.7 C 10/29/18 10:16 Pulse 104 H 10/29/18 10:16 Resp 12 10/29/18 10:16 BP 128/90 10/29/18 10:16 Pulse Ox 100 10/29/18 10:16 - Orders/Labs/Meds Labs: Laboratory Tests 10/29/18 10/29/18 Range/Units 10:25 10:25 WBC 5.71 (3.98-10.04) K/mm3 RBC 4.58 (3.98-5.22) M/mm3 Hgb 14.2 (11.2-15.7) gm/L Hct 42.2 (34.1-44.9) % MCV 92.1 (79.4-94.8) fl MCH 31.0 (25.6-32.2) pg MCHC 33.6 (32.2-35.5) g/dl RDW Std Deviation 42.7 (36.4-46.3) fL Plt Count 243 (182-369) K/mm3 MPV 9.2 L (9.4-12.3) fl Neutrophils % (Manual) 68 H (40-60) % Band Neutrophils % 0 (0-10) % Lymphocytes % (Manual) 13 L (20-40) % Atypical Lymphs % 3 % Monocytes % (Manual) 16 H (2-10) % Eosinophils % (Manual) 0 L (0.7-5.8) % Basophils % (Manual) 0 L (0.1-1.2) Platelet Estimate Adequate Plt Morphology Comment Normal RBC Morph Comment Normal Sodium 136 (136-145) mEq/L Potassium 3.7 (3.5-5.1) mEq/L Chloride 100 (98-107) mEq/L Carbon Dioxide 25 (21-32) mEq/L Anion Gap 14.7 (5-15) BUN 12 (7-18) mg/dL Creatinine 0.9 (0.55-1.02) mg/dL Est Cr Clr Drug Dosing 70.80 mL/min Estimated GFR (MDRD) > 60 (>60) mL/min BUN/Creatinine Ratio 13.3 L (14-18) Glucose 92 (74-106) mg/dL Calcium 9.3 (8.5-10.1) mg/dL Total Bilirubin 0.2 (0.2-1.0) mg/dL AST 22 (15-37) U/L ALT 34 (14-59) U/L Alkaline Phosphatase 77 (46-116) U/L Total Protein 7.5 (6.4-8.2) g/dl Albumin 3.8 (3.4-5.0) g/dl Globulin 3.7 gm/dL Albumin/Globulin Ratio 1.0 (1-2) Lipase 141 (73-393) U/L Meds: Medications Discontinued Medications Generic Name Dose Route Start Last Admin Trade Name Romelq PRN Reason Stop Dose Admin Hydromorphone HCl 1 mg 10/29/18 10:40 10/29/18 10:53 Dilaudid IVPUSH 10/29/18 10:41 1 mg ONETIME ONE Administration Lactated Ringer's 1,000 mls @ 999 mls/hr 10/29/18 10:41 10/29/18 11:04 Ringers, Lactated IV 10/29/18 11:41 999 mls/hr .BOLUS ONE Administration Ondansetron HCl 4 mg 10/29/18 10:40 10/29/18 10:58 Zofran IVPUSH 10/29/18 10:41 4 mg ONETIME ONE Administration - Re-Assessments/Exams Free Text/Narrative Re-Assessment/Exam: 10/29/18 10:43 By history, the patient's right upper quadrant abdominal pain and tenderness is most likely related to her gallbladder, however, I will not be able to prove that today. The blood work and CT scan that she had 2 days ago were unremarkable , although that is not unusual, even if the patient is suffering from cholecystitis. She needs to have an ultrasound of the right upper quadrant and a HIDA scan, which is best performed if the patient is symptomatic. She states that she has a HIDA scan scheduled for this coming , 11/02/2018, although she is not sure if an ultrasound is also scheduled. Unfortunately, today being a weekend, I cannot order an ultrasound. For today's purposes, I have ordered blood work, since the patient reports a history of fever. The patient will receive some Dilaudid, Zofran, and IV fluid, to see if we can ameliorate her symptoms. 10/29/18 12:[address] Jiang at 12:01. He stated that before he would take the patient to the operating room, he would at least need to see evidence of gallstones, therefore the patient would need to have ultrasound of the right upper quadrant. ER unable to obtain an ultrasound today, however, the patient could have an ultrasound tomorrow morning at 07:30. Dr. Jiang took the patient's name, and will look out for the results of the ultrasound, and contact her if there is evidence of gallstones or cholecystitis. In the meantime, I will discharge the patient home with a prescription for Dinosaur. She already has Zofran at home. The patient has been instructed to eat a low-fat/ bland diet, then to remain NPO after midnight tonight, in preparation for the ultrasound in the morning. I also advised the patient that if she winds up undergoing the HIDA scan on , that she not take Dinosaur for at least 12 hours prior. Departure - Departure Time of Disposition: 12:17 Disposition: Home, Self-Care 01 Condition: Fair Clinical Impression: Right upper quadrant abdominal pain of unknown etiology, Nausea and vomiting - Discharge Information *PRESCRIPTION DRUG MONITORING PROGRAM REVIEWED*: Not Applicable *COPY OF PRESCRIPTION DRUG MONITORING REPORT IN PATIENT LAURIE: Not Applicable Prescriptions: Acetaminophen/HYDROcodone [Dinosaur 325-5 MG] 1 - 2 tab PO Q6H PRN #20 tablet PRN Reason: Pain (Severe 7-10) Referrals: Katerina Alvarado NP [Primary Care Provider] - Que Jiang MD [Physician] - Forms: ED Department Discharge Additional Instructions: You were seen in the emergency room for recurrent right upper abdominal pain, along with nausea, vomiting, watery diarrhea, and low-grade fever. Workup in the ER included a CBC, CMP, and lipase level, all of which were normal. Because you had a CT scan of your abdomen and pelvis 2 days ago, which was unremarkable, it was not repeated again. Your case was discussed with the Surgeon Dr. Jiang. He recommended that you undergo an ultrasound of your right upper quadrant tomorrow morning at 07:30. This has been scheduled for you. Show up at the radiology department at 07:00. Eat a low-fat and bland diet today. In order to have the ultrasound, do not eat anything after midnight tonight. Take [id number] ibuprofen, 2-3 tablets (400-600 mg) every 8 hours, with food, as needed for discomfort. A prescription for the opioid pain reliever Dinosaur has been provided to you. you can fill the prescription at the [facility], located just south and across the [address] from [facility]. They will be open between noon and 4: 00 this afternoon. You may take 1-2 tablets of Dinosaur up to every 6 hours, as needed for pain not relieved by ibuprofen. If you take Dinosaur, do not drive or operate heavy machinery for 10 hours afterwards. Dinosaur will likely cause constipation, so consider taking a stool softener. Also, be aware that if you undergo the HIDA scan on , you cannot take an opioid for at least 12 hours prior. Dissolve one tablet of the anti-nausea medicine Zofran, that you already have, on your tongue, up to every 8 hours, as needed for nausea/vomiting. If the ultrasound shows evidence of gallstones or gallbladder disease, Dr. Jiang will contact you. If any other problems, please do not hesitate to return to the ER.
== END 2018-10-29 12:55 | disposition home or self-care (01) ==
LOC: JD.ED 10:05
DX: R10.11 Right upper quadrant pain (principal); R11.2 Nausea with vomiting, unspecified; F17.210 Nicotine dependence, cigarettes, uncomplicated; Z88.8 Allergy status to other drugs, medicaments and biological substances; Z88.2 Allergy status to sulfonamides
CPT/HCPCS: 36415; 80053; 83690; 85007; 85027; 96361; 96374; 96375; 99284; J1170; J2405; J7120

== ENCOUNTER 2019-10-09 11:22 | Emergency (ER) | payer MEDICAID ==
[2019-10-09] MEDS ORDERED: Sodium Chloride 0.9% 10 ML Syringe FLUSH PRN (11:37)
[2019-10-09] MEDS ORDERED: Ondansetron 4 MG/2 ML SDV IVPUSH ONE (11:37)
[2019-10-09] MEDS ORDERED: Ketorolac 30 MG/ML SDV IVPUSH ONE (11:38)
[2019-10-09] MEDS ORDERED: HYDROmorphone 1 MG/ML Syringe IVPUSH ONE (11:38)
[2019-10-09] MEDS ORDERED: Sodium Chloride 0.9% 1,000 ML IV SCH (11:45)
--- NOTE | 2019-10-09 12:44 | CT ---
CT abdomen and pelvis Technique: Multiple axial sections were obtained from above the dome of the diaphragm inferiorly through the pubic symphysis. Intravenous and oral contrast not utilized. Study has been performed as a ureteral stone protocol. Comparison: Prior contrast exam of 10/27/18. Findings: Ureters show no dilatation. No abnormal calcifications are seen along the course of the ureters. No renal calculi are seen. Visualized lung bases show nothing acute. Liver shows no focal abnormality. Spleen appears within normal limits. Adrenal glands show no nodule. Pancreas is within normal limits. Aorta shows no aneurysm. Surgical clips are seen from prior cholecystectomy. No retroperitoneal adenopathy or mesenteric abnormalities are seen. Appendix is seen which is normal. IUD is present within the uterus. No pelvic mass or adenopathy is seen. No free fluid or inflammatory change is appreciated. Impression: 1. No renal calculi, ureteral dilatation or ureteral stone is seen. 2. IUD present within the uterus. 3. Nothing acute is appreciated on noncontrast CT study of the abdomen and pelvis. Diagnostic code #2 This report was dictated in [place] Standard Time
--- NOTE | 2019-10-09 14:09 | EDM.PDOC ---
ED HPI GENERAL MEDICAL PROBLEM - General Chief Complaint: Flank Pain Stated Complaint: L FLANK PAIN, HARD TIME VOIDING Time Seen by Provider: 10/09/19 11:29 Source of Information: Reports: Patient History Limitations: Reports: No Limitations - History of Present Illness INITIAL COMMENTS - FREE TEXT/NARRATIVE: The patient presents with left flank and left sided abdominal pain. This has been going on for about a week. She does not remember injuring herself in any way. She has no fever, chills, cough, congestion or runny nose. She does have some nausea at times. She has no history of kidney stones. Onset: Gradual Duration: Week(s): (1) Quality: Reports: Sharp Improves with: Reports: None Worsens with: Reports: None Associated Symptoms: Reports: Nausea/Vomiting. Denies: Chest Pain, Cough, Fever /Chills, Headaches, Shortness of Breath Left Flank Pain Score (Numeric/FACES): 10 - Related Data Allergies Allergy/AdvReac Type Severity Reaction Status Date / Time chocolate flavor Allergy Anaphylactic Verified 10/09/19 11:33 Shock ciprofloxacin [From Cipro] Allergy Hives Verified 10/09/19 11:33 ciprofloxacin HCl Allergy Hives Verified 10/09/19 11:33 [From Cipro] lactose Allergy Hives Verified 10/09/19 11:33 nitrofurantoin Allergy Hives Verified 10/09/19 11:33 [From Macrobid] nitrofurantoin Allergy Hives Verified 10/09/19 11:33 macrocrystalline [From Macrobid] strawberry Allergy Hives Verified 10/09/19 11:33 Sulfa (Sulfonamide Allergy Hives Verified 10/09/19 11:33 Antibiotics) venom-honey bee Allergy Shortness Verified 10/09/19 11:33 [bee venom (honey bee)] of Breath bee Allergy Shortness Uncoded 05/23/15 12:31 of Breath Home Meds: Home Meds Furosemide [Lasix] 10/09/19 [History] Hydrocodone/Acetaminophen [Hydrocodon-Acetaminophen 5-325] 1 - 2 each PO Q6HR PRN #6 tablet 10/09/19 [Rx] Zolpidem [Ambien] 10/09/19 [History] buPROPion HCl [Wellbutrin Xl] 10/09/19 [History] Past Medical History Cardiovascular History: Reports: Hypertension Respiratory History: Reports: Sleep Apnea 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: Musculoskeletal History: Reports: Other (See Below) Other Musculoskeletal History: RIGHT KNEE SURGERY Endocrine/Metabolic History: Reports: Obesity/BMI 30+ - Past Surgical History HEENT Surgical History: Reports: Naso-Sinus Surgery Other HEENT Surgeries/Procedures: nose surgery Female Surgical History: Reports: Section Musculoskeletal Surgical History: Reports: Arthroscopic Procedure Social & Family History - Family History Family Medical History: Noncontributory - Caffeine Use Caffeine Use: Reports: Coffee - Recreational Drug Use Recreational Drug Use: No - Living Situation & Occupation Living situation: Reports: Single, with Family (2 kids) 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 Denies: Diarrhea, Vomiting ED EXAM, GI/ABD - Physical Exam Exam: See Below Exam Limited By: No Limitations General Appearance: Alert, No Apparent Distress Ears: Normal External Exam Nose: Normal Inspection Head: Atraumatic, Normocephalic Neck: Normal Inspection Respiratory/Chest: No Respiratory Distress, Lungs Clear, Normal Breath Sounds Cardiovascular: Regular Rate, Rhythm, No Edema, No Murmur GI/Abdominal Exam: Soft, No Organomegaly, No Mass, Tender (Moderate tenderness to the left abdomen) Back Exam: CVA Tenderness (L) Course - Vital Signs Last Recorded V/S: Last Vital Signs Temp 98.2 F 10/09/19 11:30 Pulse 81 10/09/19 11:30 Resp 17 10/09/19 11:30 BP 114/91 H 10/09/19 11:30 Pulse Ox 98 10/09/19 11:30 - Orders/Labs/Meds Orders: Active Orders 24 hr Category Date Time Status Peripheral IV Care [RC] . DIRECTED Care 10/09/19 11:37 Active HCG QUALITATIVE,SERUM [CHEM] Stat Lab 10/09/19 13:00 Received Sodium Chloride 0.9% [Normal Saline] 1,000 ml Med 10/09/19 11:45 Active IV ASDIRECTED Sodium Chloride 0.9% [Saline Flush] Med 10/09/19 11:37 Active 10 ml FLUSH ASDIRECTED PRN ED Antiemetic Medication Reflex [OM.PC] Stat Oth 10/09/19 11:37 Ordered Peripheral IV Insertion Adult [OM.PC] Stat Oth 10/09/19 11:37 Ordered Medication Orders Sodium Chloride (Normal Saline) 1,000 mls @ 125 mls/hr IV ASDIRECTED PAULIE Last Admin: 10/09/19 12:12 Dose: 125 mls/hr Sodium Chloride (Saline Flush) 10 ml FLUSH ASDIRECTED PRN PRN Reason: Keep Vein Open Last Admin: 10/09/19 12:10 Dose: 10 ml Labs: Laboratory Tests 10/09/19 10/09/19 10/09/19 Range/Units 13:00 13:00 13:17 WBC 7.39 (3.98-10.04) K/mm3 RBC 4.53 (3.98-5.22) M/mm3 Hgb 13.9 (11.2-15.7) gm/dl Hct 42.7 (34.1-44.9) % MCV 94.3 (79.4-94.8) fl MCH 30.7 (25.6-32.2) pg MCHC 32.6 (32.2-35.5) g/dl RDW Std Deviation 43.4 (36.4-46.3) fL Plt Count 313 (182-369) K/mm3 MPV 8.6 L (9.4-12.3) fl Neut % (Auto) 54.5 (34.0-71.1) % Lymph % (Auto) 33.4 (19.3-51.7) % [place] % (Auto) 10.3 (4.7-12.5) % Eos % (Auto) 1.6 (0.7-5.8) Baso % (Auto) 0.1 (0.1-1.2) % Neut # (Auto) 4.02 (1.56-6.13) K/mm3 Lymph # (Auto) 2.47 (1.18-3.74) K/mm3 [place] # (Auto) 0.76 H (0.24-0.36) K/mm3 Eos # (Auto) 0.12 (0.04-0.36) K/mm3 Baso # (Auto) 0.01 (0.01-0.08) K/mm3 Sodium 140 (136-145) mEq/L Potassium 4.3 (3.5-5.1) mEq/L Chloride 106 (98-107) mEq/L Carbon Dioxide 26 (21-32) mEq/L Anion Gap 12.3 (5-15) BUN 14 (7-18) mg/dL Creatinine 1.0 (0.55-1.02) mg/dL Est Cr Clr Drug Dosing 63.10 mL/min Estimated GFR (MDRD) > 60 (>60) mL/min BUN/Creatinine Ratio 14.0 (14-18) Glucose 98 (74-106) mg/dL Calcium 8.5 (8.5-10.1) mg/dL Total Bilirubin 0.3 (0.2-1.0) mg/dL AST 15 (15-37) U/L ALT 26 (14-59) U/L Alkaline Phosphatase 68 (46-116) U/L Total Protein 6.9 (6.4-8.2) g/dl Albumin 3.5 (3.4-5.0) g/dl Globulin 3.4 gm/dL Albumin/Globulin Ratio 1.0 (1-2) Lipase 152 (73-393) U/L Urine Color Yellow (Yellow) Urine Appearance Clear (Clear) Urine pH 7.0 (5.0-8.0) Ur Specific [place] 1.025 (1.005-1.030) Urine Protein Trace H (Negative) Urine Glucose (UA) Negative (Negative) Urine Ketones Negative (Negative) Urine Occult Blood Negative (Negative) Urine Nitrite Negative (Negative) Urine Bilirubin Negative (Negative) Urine Urobilinogen 0.2 (0.2-1.0) Ur Leukocyte Esterase Negative (Negative) Urine RBC 0-5 (0-5) /hpf Urine WBC 0-5 (0-5) /hpf Ur Squamous Epith Cells 0-5 (0-5) /hpf Amorphous Sediment Few H (NOT SEEN) /hpf Urine Bacteria Few (FEW) /hpf Urine Mucus Moderate H (FEW) /hpf Meds: Medications Generic Name Dose Route Start Last Admin Trade Name Freq PRN Reason Stop Dose Admin Sodium Chloride 1,000 mls @ 125 mls/hr 10/09/19 11:45 10/09/19 12:12 Normal Saline IV 125 mls/hr ASDIRECTED PAULIE Administration Sodium Chloride 10 ml 10/09/19 11:37 10/09/19 12:10 Saline Flush FLUSH 10 ml ASDIRECTED PRN Administration Keep Vein Open Discontinued Medications Generic Name Dose Route Start Last Admin Trade Name Romelq PRN Reason Stop Dose Admin Hydromorphone HCl 1 mg 10/09/19 11:38 10/09/19 12:10 Dilaudid IVPUSH 10/09/19 11:39 1 mg ONETIME ONE Administration Ketorolac Tromethamine 30 mg 10/09/19 11:38 10/09/19 12:09 Toradol IVPUSH 10/09/19 11:39 30 mg ONETIME ONE Administration Ondansetron HCl 4 mg 10/09/19 11:37 10/09/19 12:09 Zofran IVPUSH 10/09/19 11:38 4 mg ONETIME ONE Administration - Re-Assessments/Exams Free Text/Narrative Re-Assessment/Exam: 10/09/19 14:07 I ordered an IV NS at 125mL/hr, zofran 4mg IV, dilaudid 1mg IV, toradol 30mg IV , labs, UA and a noncontrast CT. Her CBC and CMP look good. Her UA shows no UTI. Her CT shows nothing acute. Departure - Departure Time of Disposition: 14:10 Disposition: Home, Self-Care 01 Condition: Good Clinical Impression: Left flank pain - Discharge Information *PRESCRIPTION DRUG MONITORING PROGRAM REVIEWED*: No *COPY OF PRESCRIPTION DRUG MONITORING REPORT IN PATIENT LAURIE: No Prescriptions: Hydrocodone/Acetaminophen [Hydrocodon-Acetaminophen 5-325] 1 - 2 each PO Q6HR PRN #6 tablet PRN Reason: Pain Referrals: Katerina Alvarado NP [Primary Care Provider] - 1 Week Additional Instructions: Ice your back for 15 minutes 3 times per day for 2 days. Take tylenol or motrin for pain. If that does not help, try the hydrocodone. Follow up with your doctor within a week. Please return if you are worse. Sepsis Event Note - Evaluation Sepsis Screening Result: No Definite Risk - Focused Exam Vital Signs: Vital Signs Temp Pulse Resp BP Pulse Ox 10/09/19 11:30 98.2 F 81 17 114/91 H 98 Date Exam was Performed: 10/09/19 Time Exam was Performed: 14:04 - My Orders Last 24 Hours: My Active Orders 10/09/19 11:37 Peripheral IV Care [RC] . DIRECTED Sodium Chloride 0.9% [Saline Flush] 10 ml FLUSH ASDIRECTED PRN ED Antiemetic Medication Reflex [OM.PC] Stat Peripheral IV Insertion Adult [OM.PC] Stat 10/09/19 11:45 Sodium Chloride 0.9% [Normal Saline] 1,000 ml IV ASDIRECTED 10/09/19 13:00 HCG QUALITATIVE,SERUM [CHEM] Stat - Assessment/Plan Last 24 Hours: My Active Orders 10/09/19 11:37 Peripheral IV Care [RC] . DIRECTED Sodium Chloride 0.9% [Saline Flush] 10 ml FLUSH ASDIRECTED PRN ED Antiemetic Medication Reflex [OM.PC] Stat Peripheral IV Insertion Adult [OM.PC] Stat 10/09/19 11:45 Sodium Chloride 0.9% [Normal Saline] 1,000 ml IV ASDIRECTED 10/09/19 13:00 HCG QUALITATIVE,SERUM [CHEM] Stat
[2019-10-09 15:11] VITALS: BP 118/57; PULSE 82
== END 2019-10-09 14:23 | disposition home or self-care (01) ==
LOC: JD.ED 11:22
DX: R10.9 Unspecified abdominal pain (principal); I10 Essential (primary) hypertension; E66.9 Obesity, unspecified; Z68.43 Body mass index [BMI] 50.0-59.9, adult; Z88.1 Allergy status to other antibiotic agents; Z91.030 Bee allergy status; Z91.011 Allergy to milk products; Z88.2 Allergy status to sulfonamides; Z91.018 Allergy to other foods; Z79.899 Other long term (current) drug therapy
CPT/HCPCS: 36415; 74176; 80053; 81001; 83690; 84703; 85025; 96361; 96374; 96375; 99284; J1170; J1885; J2405; J7030

== ENCOUNTER 2019-10-21 10:31 | Emergency (ER) | payer MEDICAID ==
[2019-10-21 10:57] VITALS: BP 122/90; PULSE 78
[2019-10-21] MEDS ORDERED: HYDROmorphone 1 MG/ML Syringe IM ONE (11:45)
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
--- NOTE | 2019-10-21 12:33 | CR ---
Right humerus: 2 views of the right humerus were obtained. Comparison: No prior humerus exam. No fracture or other bony abnormality is identified. Impression: 1. No abnormality is identified on 2 view right humerus exam. Diagnostic code #1 This report was dictated in [place] Standard Time
--- NOTE | 2019-10-21 12:39 | CR ---
Right shoulder: 2 views of the right shoulder were obtained. Comparison: No previous right shoulder exam. Glenohumeral joint and acromioclavicular joint appears within normal limits. No acute fracture or other bony abnormality is appreciated. Impression: 1. No abnormality is identified on 2 view right shoulder exam. Diagnostic code #1 This report was dictated in [place] Standard Time
== END 2019-10-21 12:55 | disposition home or self-care (01) ==
LOC: JD.ED 10:31
DX: S43.004A Unspecified dislocation of right shoulder joint, initial encounter (principal); I10 Essential (primary) hypertension; F17.210 Nicotine dependence, cigarettes, uncomplicated; E66.9 Obesity, unspecified; Z68.26 Body mass index [BMI] 26.0-26.9, adult; Z88.1 Allergy status to other antibiotic agents; Z91.030 Bee allergy status; Z91.011 Allergy to milk products; Z88.2 Allergy status to sulfonamides; Z91.018 Allergy to other foods; Z79.899 Other long term (current) drug therapy; Y04.2XXA Assault by strike against or bumped into by another person, initial encounter; Y92.89 Other specified places as the place of occurrence of the external cause
CPT/HCPCS: 73030; 73060; 96372; 99283; J1170

== ENCOUNTER 2019-10-31 19:44 | Emergency (ER) | payer MEDICAID ==
[2019-10-31 19:55] VITALS: BP 155/106; PULSE 118
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
[2019-10-31] MEDS ORDERED: Lactated Ringers 1,000 ML IV ONE (20:11)
== END 2019-10-31 22:54 | disposition home or self-care (01) ==
LOC: JD.ED 19:44
DX: F19.10 Other psychoactive substance abuse, uncomplicated (principal); I10 Essential (primary) hypertension; Z79.899 Other long term (current) drug therapy; Z88.2 Allergy status to sulfonamides; Z91.030 Bee allergy status; Z88.8 Allergy status to other drugs, medicaments and biological substances; Z91.018 Allergy to other foods; Z91.011 Allergy to milk products; Z88.1 Allergy status to other antibiotic agents
CPT/HCPCS: 36415; 80053; 80306; 80307; 81001; 83735; 85025; 93005; 96360; 99284; J7120; 99283

== ENCOUNTER 2020-02-19 22:21 | Emergency (ER) | payer MEDICAID ==
[2020-02-19 23:40] VITALS: BP 157/92; PULSE 100
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
[2020-02-19] MEDS ORDERED: LORazepam 2 MG/ML SDV IVPUSH ONE (23:54)
[2020-02-19] MEDS ORDERED: Lactated Ringers 1,000 ML IV ONE (23:54)
== END 2020-02-20 02:03 | disposition home or self-care (01) ==
LOC: JD.ED 22:21
DX: F15.90 Other stimulant use, unspecified, uncomplicated (principal); F12.90 Cannabis use, unspecified, uncomplicated; F98.8 Other specified behavioral and emotional disorders with onset usually occurring in childhood and adolescence; F41.9 Anxiety disorder, unspecified; F32.9 Major depressive disorder, single episode, unspecified; E66.9 Obesity, unspecified; Z68.26 Body mass index [BMI] 26.0-26.9, adult; Z91.018 Allergy to other foods; Z88.1 Allergy status to other antibiotic agents; Z91.011 Allergy to milk products; Z88.8 Allergy status to other drugs, medicaments and biological substances; Z88.2 Allergy status to sulfonamides; Z91.030 Bee allergy status; Z79.899 Other long term (current) drug therapy
CPT/HCPCS: 36415; 80053; 80306; 80307; 85025; 96374; 99285; J2060; J7120; 99283

== ENCOUNTER 2020-06-18 14:45 | Emergency (ER) | payer MEDICAID | END 2020-06-18 14:55 | disposition left against medical advice (07) | LOC: JD.ED 14:45 | DX: Z53.21 Procedure and treatment not carried out due to patient leaving prior to being seen by health care provider (principal) ==

== ENCOUNTER 2020-12-27 14:57 | Emergency (ER) | payer MEDICAID ==
[2020-12-27 15:22] VITALS: BP 123/81; PULSE 96
[2020-12-27] MEDS ORDERED: Acetaminophen 325 MG Tab PO ONE (16:02)
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
== END 2020-12-27 17:00 | disposition left against medical advice (07) ==
LOC: JD.ED 14:57
DX: R06.02 Shortness of breath (principal); I10 Essential (primary) hypertension; E66.9 Obesity, unspecified; Z68.23 Body mass index [BMI] 23.0-23.9, adult; Z91.018 Allergy to other foods; Z88.1 Allergy status to other antibiotic agents; Z91.048 Other nonmedicinal substance allergy status; Z88.2 Allergy status to sulfonamides; Z91.030 Bee allergy status; Z79.899 Other long term (current) drug therapy; Z72.0 Tobacco use; Z20.822 Contact with and (suspected) exposure to COVID-19
CPT/HCPCS: 36415; 80053; 85025; 87651-QW; 99282; 99284; U0002

== ENCOUNTER 2021-08-03 15:59 | Emergency (ER) | payer MEDICAID ==
[2021-08-03 16:12] VITALS: BP 157/108; PULSE 132
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
--- NOTE | 2021-08-03 17:01 | CR ---
Mandible: 3 views of the mandible were obtained. Comparison: No previous mandible study is available. Less than optimal study but is the best possible due to patient's condition. Mandible appears intact. No discrete fracture or other abnormality is appreciated. Impression: 1. Less than optimal study due to patient's condition. No definite mandible abnormality is seen. If patient remains symptomatic, CT study is then recommended. Diagnostic code #1
== END 2021-08-03 17:00 ==
LOC: JD.ED 15:59
DX: S00.83XA Contusion of other part of head, initial encounter (principal); F10.120 Alcohol abuse with intoxication, uncomplicated; I10 Essential (primary) hypertension; E66.9 Obesity, unspecified; Z91.018 Allergy to other foods; Z88.1 Allergy status to other antibiotic agents; Z91.011 Allergy to milk products; Z88.2 Allergy status to sulfonamides; Z91.030 Bee allergy status; W18.30XA Fall on same level, unspecified, initial encounter; Y92.524 Gas station as the place of occurrence of the external cause
CPT/HCPCS: 70110; 70110-26; 99283-25

== ENCOUNTER 2021-10-05 13:05 | Emergency (ER) | payer MEDICAID ==
[2021-10-05 13:53] VITALS: BP 133/86
[2021-10-05] MEDS ORDERED: Ondansetron 4 MG/2 ML SDV IVPUSH ONE (14:57)
[2021-10-05] MEDS ORDERED: Sodium Chloride 0.9% 10 ML Syringe FLUSH PRN (14:57)
[2021-10-05] MEDS ORDERED: HYDROmorphone 0.5 MG/0.5 ML Syringe IVPUSH ONE (14:57)
[2021-10-05] MEDS ORDERED: Sodium Chloride 0.9% 1,000 ML IV SCH (15:00)
[2021-10-05 20:10] VITALS: PULSE 86
== END 2021-10-05 17:00 | disposition home or self-care (01) ==
LOC: JD.ED 13:05
DX: U07.1 COVID-19 (principal); I10 Essential (primary) hypertension; F17.210 Nicotine dependence, cigarettes, uncomplicated; Z88.8 Allergy status to other drugs, medicaments and biological substances; Z88.2 Allergy status to sulfonamides
CPT/HCPCS: 36415; 71045; 80053; 85025; 96374; 96375; 99284; J1170; J2405; J7030

== ENCOUNTER 2021-10-24 06:55 | Emergency (ER) | payer MEDICAID ==
[2021-10-24 07:13] VITALS: BP 116/80; PULSE 72
[2021-10-24] MEDS ORDERED: Sodium Chloride 0.9% 10 ML Syringe FLUSH PRN (07:21)
[2021-10-24] MEDS ORDERED: Ondansetron 4 MG/2 ML SDV IVPUSH ONE (07:21)
[2021-10-24] MEDS ORDERED: Sodium Chloride 0.9% 1,000 ML IV STA (07:21)
[2021-10-24] MEDS ORDERED: HYDROmorphone 1 MG/ML Syringe IVPUSH ONE (07:24)
== END 2021-10-24 10:00 | disposition home or self-care (01) ==
LOC: JD.ED 06:55
DX: R10.31 Right lower quadrant pain (principal); R10.2 Pelvic and perineal pain; I10 Essential (primary) hypertension; E66.9 Obesity, unspecified; Z68.25 Body mass index [BMI] 25.0-25.9, adult; Z91.030 Bee allergy status; Z88.2 Allergy status to sulfonamides; Z91.011 Allergy to milk products; Z88.1 Allergy status to other antibiotic agents; Z91.018 Allergy to other foods; Z72.0 Tobacco use
CPT/HCPCS: 36415; 76830; 80053; 81001; 83690; 84703; 85025; 86140; 96374; 96375; 99284; J1170; J2405; J7030; 99285

== ENCOUNTER 2022-02-15 15:28 | Emergency (ER) | payer MEDICAID ==
[2022-02-15 15:44] VITALS: BP 129/96; PULSE 84
== END 2022-02-15 17:45 | disposition home or self-care (01) ==
LOC: JD.ED 15:28
DX: S49.91XA Unspecified injury of right shoulder and upper arm, initial encounter (principal); I10 Essential (primary) hypertension; K21.9 Gastro-esophageal reflux disease without esophagitis; F17.210 Nicotine dependence, cigarettes, uncomplicated; Z88.1 Allergy status to other antibiotic agents; Z91.011 Allergy to milk products; Z91.030 Bee allergy status; Z88.2 Allergy status to sulfonamides; Z91.018 Allergy to other foods; Z79.899 Other long term (current) drug therapy; W17.89XA Other fall from one level to another, initial encounter
CPT/HCPCS: 73030-26-RT; 73030-RT; 73060-26-RT; 73060-RT; 99283-25

== ENCOUNTER 2022-03-21 06:31 | Emergency (ER) | payer MEDICAID | END 2022-03-21 07:00 | disposition left against medical advice (07) | LOC: JD.ED 06:31 | DX: Z53.21 Procedure and treatment not carried out due to patient leaving prior to being seen by health care provider (principal) ==

== ENCOUNTER 2022-03-21 21:38 | Emergency (ER) | payer MEDICAID ==
[2022-03-21 21:59] VITALS: BP 135/100; PULSE 80
[2022-03-21] MEDS ORDERED: predniSONE 20 MG Tab PO STA (22:34)
== END 2022-03-21 22:40 | disposition home or self-care (01) ==
LOC: JD.ED 21:38
DX: L25.9 Unspecified contact dermatitis, unspecified cause (principal); I10 Essential (primary) hypertension; F17.210 Nicotine dependence, cigarettes, uncomplicated; Z86.16 Personal history of COVID-19; Z28.310 Unvaccinated for COVID-19; Z91.030 Bee allergy status; Z91.011 Allergy to milk products; Z91.018 Allergy to other foods; Z79.899 Other long term (current) drug therapy; Z88.1 Allergy status to other antibiotic agents; Z88.2 Allergy status to sulfonamides
CPT/HCPCS: 99282; J7512; 99283

== ENCOUNTER 2022-03-22 13:11 | Emergency (ER) | payer MEDICAID ==
[2022-03-22 14:56] VITALS: BP 142/107; PULSE 97
[2022-03-22] MEDS ORDERED: predniSONE 20 MG Tab PO ONE (16:48)
[2022-03-22] MEDS ORDERED: EPINEPHrine 1 MG/ML SDV IM ONE ×2 (16:48→16:50)
[2022-03-22] MEDS ORDERED: diphenhydrAMINE 50 MG Cap PO ONE (16:48)
[2022-03-22] MEDS ORDERED: Silver Sulfadiazine 1% Crm 50 GM Tube TOP ONE (16:51)
== END 2022-03-22 17:30 | disposition home or self-care (01) ==
LOC: JD.ED 13:11
DX: L25.9 Unspecified contact dermatitis, unspecified cause (principal); I10 Essential (primary) hypertension; F17.210 Nicotine dependence, cigarettes, uncomplicated; K21.9 Gastro-esophageal reflux disease without esophagitis; E66.9 Obesity, unspecified; Z68.26 Body mass index [BMI] 26.0-26.9, adult; Z86.16 Personal history of COVID-19; Z88.1 Allergy status to other antibiotic agents; Z91.011 Allergy to milk products; Z88.2 Allergy status to sulfonamides; Z91.030 Bee allergy status; Z91.018 Allergy to other foods; Z79.899 Other long term (current) drug therapy
CPT/HCPCS: 96372; 99283; A9270; J0171; Q0163; 99282

== ENCOUNTER 2022-08-09 16:23 | Emergency (ER) | payer MEDICAID ==
[2022-08-09 17:14] VITALS: PULSE 79
[2022-08-09] MEDS ORDERED: Ketorolac 30 MG/ML SDV IM ONE (17:28)
[2022-08-09] MEDS ORDERED: Acetaminophen 325 MG Tab PO ONE (18:34)
[2022-08-09 19:06] VITALS: BP 118/82
== END 2022-08-09 19:11 | disposition home or self-care (01) ==
LOC: JD.ED 16:23
DX: R07.89 Other chest pain (principal); I10 Essential (primary) hypertension; E66.9 Obesity, unspecified; Z68.26 Body mass index [BMI] 26.0-26.9, adult; Z91.018 Allergy to other foods; Z88.1 Allergy status to other antibiotic agents; Z88.2 Allergy status to sulfonamides; Z91.030 Bee allergy status; Z88.8 Allergy status to other drugs, medicaments and biological substances; Z79.899 Other long term (current) drug therapy; Z90.49 Acquired absence of other specified parts of digestive tract
CPT/HCPCS: 96372; 99283; A9270; J1885

== ENCOUNTER 2022-08-16 10:30 | Emergency (ER) | payer MEDICAID ==
[2022-08-16 11:35] VITALS: BP 132/97; PULSE 104
[2022-08-16] MEDS ORDERED: Ketorolac 15 MG/ML SDV IVPUSH ONE (12:24)
[2022-08-16] MEDS ORDERED: Ketorolac 30 MG/ML SDV IM ONE (12:59)
[2022-08-16] MEDS ORDERED: Acetaminophen 325 MG Tab PO ONE (14:30)
== END 2022-08-16 14:34 ==
LOC: JD.ED 10:30
DX: S40.012A Contusion of left shoulder, initial encounter (principal); I10 Essential (primary) hypertension; K21.9 Gastro-esophageal reflux disease without esophagitis; E66.9 Obesity, unspecified; Z68.26 Body mass index [BMI] 26.0-26.9, adult; Z72.0 Tobacco use; Z91.018 Allergy to other foods; Z88.1 Allergy status to other antibiotic agents; Z91.011 Allergy to milk products; Z88.2 Allergy status to sulfonamides; Z91.030 Bee allergy status; Z88.8 Allergy status to other drugs, medicaments and biological substances; Z79.899 Other long term (current) drug therapy; W18.30XA Fall on same level, unspecified, initial encounter
CPT/HCPCS: 71045; 73000; 80306; 81025; 96372; 99283; J1885

== ENCOUNTER 2022-11-17 17:01 | Emergency (ER) | payer MEDICAID ==
[2022-11-17 17:30] VITALS: BP 126/91; PULSE 73
[2022-11-17] MEDS ORDERED: cefTRIAXone 1 GM in Sodium Chloride 0.9% 100 ML IV ONE (19:54)
== END 2022-11-17 21:10 | disposition home or self-care (01) ==
LOC: JD.ED 17:01
DX: N39.0 Urinary tract infection, site not specified (principal); K21.9 Gastro-esophageal reflux disease without esophagitis; F17.290 Nicotine dependence, other tobacco product, uncomplicated; Z91.018 Allergy to other foods; Z91.030 Bee allergy status; Z88.1 Allergy status to other antibiotic agents; Z88.2 Allergy status to sulfonamides; Z79.899 Other long term (current) drug therapy
CPT/HCPCS: 80306; 81001; 81025; 96365; 99284; J0696; J3490; 99283

== ENCOUNTER 2022-12-13 09:23 | Emergency (ER) | payer MEDICAID ==
[2022-12-13] MEDS ORDERED: Acetaminophen/oxyCODONE 325-5 MG Tab PO ONE (09:43)
[2022-12-13 10:23] VITALS: BP 137/72; PULSE 91
== END 2022-12-13 15:50 | disposition home or self-care (01) ==
LOC: JD.ED 09:23 → EEVIPCON 09:23 → JD.ED 15:50
DX: S20.229A Contusion of unspecified back wall of thorax, initial encounter (principal); S30.0XXA Contusion of lower back and pelvis, initial encounter; S40.022A Contusion of left upper arm, initial encounter; S40.021A Contusion of right upper arm, initial encounter; S10.93XA Contusion of unspecified part of neck, initial encounter; S09.90XA Unspecified injury of head, initial encounter; I10 Essential (primary) hypertension; K21.9 Gastro-esophageal reflux disease without esophagitis; E66.9 Obesity, unspecified; Z91.018 Allergy to other foods; Z91.030 Bee allergy status; Z88.2 Allergy status to sulfonamides; Z91.011 Allergy to milk products; Z88.1 Allergy status to other antibiotic agents; Z68.24 Body mass index [BMI] 24.0-24.9, adult; Z79.899 Other long term (current) drug therapy; Y04.0XXA Assault by unarmed brawl or fight, initial encounter
CPT/HCPCS: 36415; 70450; 72072; 72100; 72125; 73110; 80053; 80306; 80307; 84703; 85025; 99284; A9270; 99285

== ENCOUNTER 2023-01-02 20:12 | Emergency (ER) | payer MEDICAID ==
[2023-01-02 20:20] VITALS: BP 136/90
== END 2023-01-02 20:20 ==
LOC: JD.ED 20:12
DX: Z02.89 Encounter for other administrative examinations (principal); K21.9 Gastro-esophageal reflux disease without esophagitis; I10 Essential (primary) hypertension; E66.9 Obesity, unspecified; Z68.30 Body mass index [BMI] 30.0-30.9, adult; Z88.1 Allergy status to other antibiotic agents; Z91.018 Allergy to other foods; Z91.011 Allergy to milk products; Z88.2 Allergy status to sulfonamides; Z91.030 Bee allergy status; Z79.899 Other long term (current) drug therapy; Z86.16 Personal history of COVID-19
CPT/HCPCS: 99283; 99284

== ENCOUNTER 2023-01-11 12:49 | Emergency (ER) | payer MEDICAID ==
[2023-01-11 13:05] VITALS: BP 126/97; PULSE 68
[2023-01-11 13:54] LABS: APPEARANCE,URINE CLEAR (Clear); BILIRUBIN,URINE NEGATIVE (Negative); COLOR,URINE YELLOW (Yellow); GLUCOSE,URINE NEGATIVE (Negative); KETONES,URINE NEGATIVE (Negative); LEUKOCYTE ESTERASE,URINE 2+ (Negative); NITRITE,URINE NEGATIVE (Negative); OCCULT BLOOD,URINE 1+ (Negative); PH,URINE 6.5 (5.0-8.0); PROTEIN,URINE NEGATIVE (Negative); UROBILINOGEN,URINE 0.2 (0.2-1.0)
[2023-01-11 14:02] LABS: WBC,URINE 20-30 /hpf (0-5)
[2023-01-11 14:03] LABS: BACTERIA,URINE MODERATE /hpf (FEW); MUCUS,URINE MODERATE /hpf (FEW)
== END 2023-01-11 14:31 ==
LOC: JD.ED 12:49
DX: T19.2XXA Foreign body in vulva and vagina, initial encounter (principal); N39.0 Urinary tract infection, site not specified; E66.9 Obesity, unspecified; Z68.27 Body mass index [BMI] 27.0-27.9, adult; Z86.16 Personal history of COVID-19; Z88.8 Allergy status to other drugs, medicaments and biological substances; Z88.1 Allergy status to other antibiotic agents; Z91.018 Allergy to other foods; Z88.2 Allergy status to sulfonamides; Z91.030 Bee allergy status
CPT/HCPCS: 81001; 87086; 99283; 99284

== ENCOUNTER 2023-02-08 14:02 | Emergency (ER) | payer MEDICAID ==
[2023-02-08 14:42] VITALS: BP 112/82; PULSE 92
[2023-02-08 15:27] LABS: BARBITURATE SCREEN,URINE NEGATIVE (CUTOFF=200); BENZODIAZEPINES SCREEN,URINE NEGATIVE (CUTOFF=150); BUPRENORPHINE SCREEN,URINE NEGATIVE (CUTOFF=10); METHADONE SCREEN, URINE NEGATIVE (CUTOFF=200); METHAMPHETAMINES SCREEN, URINE NEGATIVE (CUTOFF=500); OXYCODONE SCREEN,URINE NEGATIVE (CUT0FF=100); PROPOXYPHENE SCREEN,URINE NEGATIVE (CUTOFF=300); THC SCREEN,URINE 20 NG/ML PRESUMPTIVE POSITIVE (CUTOFF=50)
[2023-02-08 15:28] LABS: AMPHETAMINES SCREEN, URINE NEGATIVE (CUTOFF=500)
[2023-02-08 15:42] LABS: BASOPHILS ABSOLUTE AUTO 0.03 K/mm3 (0.01-0.08); BASOPHILS PERCENT AUTO 0.6 % (0.1-1.2); EOSINOPHILS ABSOLUTE AUTO 0.16 K/mm3 (0.04-0.36); HEMATOCRIT 35.1 % (34.1-44.9); HEMOGLOBIN 11.4 gm/dl (11.2-15.7); IMMATURE GRAN ABSOLUTE AUTO 0.01 K/mm3 (0.00-0.10); IMMATURE GRAN PERCENT AUTO 0.2 % (<=1.0); LYMPHOCYTES PERCENT AUTO 31.8 % (19.3-51.7); MEAN CORPUSCULAR HEMOGLOBIN 30.6 pg (25.6-32.2); MEAN CORPUSCULAR HGB CONC 32.5 g/dl (32.2-35.5); MEAN CORPUSCULAR VOLUME 94.1 fl (79.4-94.8); MEAN PLATELET VOLUME 8.8 fl (9.4-12.3); MONOCYTES ABSOLUTE AUTO 0.63 K/mm3 (0.24-0.36); MONOCYTES PERCENT AUTO 11.8 % (4.7-12.5); NEUTROPHILS ABSOLUTE AUTO 2.81 K/mm3 (1.56-6.13); NEUTROPHILS PERCENT AUTO 52.6 % (34.0-71.1); PLATELET COUNT,PLT 326 K/mm3 (182-369); RED BLOOD CELL COUNT 3.73 M/mm3 (3.98-5.22); WHITE BLOOD CELL COUNT,WBC 5.34 K/mm3 (3.98-10.04)
[2023-02-08 16:04] LABS: A/G RATIO 1.2 (1-2); ALBUMIN 3.3 g/dl (3.4-5.0); ANION GAP 7.9 (5-15); BILIRUBIN TOTAL 0.3 mg/dL (0.2-1.0); BUN/CREATININE RATIO 6.3 (14-18); CALCIUM 8.5 mg/dL (8.5-10.1); CREATININE 0.8 mg/dL (0.55-1.02); EST CRCL DRUG DOSING (CG) 75.78 mL/min; POTASSIUM,K 3.9 mEq/L (3.5-5.1); PROTEIN TOTAL,TP 6.1 g/dl (6.4-8.2); TSH 0.719 uIU/mL (0.358-3.74)
== END 2023-02-09 16:07 | disposition home or self-care (01) ==
LOC: JD.ED 14:02
DX: S90.822A Blister (nonthermal), left foot, initial encounter (principal); J45.909 Unspecified asthma, uncomplicated; E66.9 Obesity, unspecified; Z68.26 Body mass index [BMI] 26.0-26.9, adult; Z86.16 Personal history of COVID-19; Z98.890 Other specified postprocedural states; Z91.018 Allergy to other foods; Z88.1 Allergy status to other antibiotic agents; Z88.2 Allergy status to sulfonamides; Z91.030 Bee allergy status; Z79.899 Other long term (current) drug therapy
CPT/HCPCS: 36415; 80053; 80143; 80179; 80306; 80307; 84443; 84703; 85025; 99283

== ENCOUNTER 2023-02-13 09:13 | Emergency (ER) | payer MEDICAID ==
[2023-02-13 09:42] VITALS: BP 119/89
[2023-02-13] MEDS ORDERED: Famotidine 20 MG Tab PO ONE (11:49)
[2023-02-13] MEDS ORDERED: LORazepam 0.5 MG Tab PO ONE (11:49)
[2023-02-13 14:22] VITALS: PULSE 81
== END 2023-02-13 14:23 | disposition home or self-care (01) ==
LOC: JD.ED 09:13
DX: F41.9 Anxiety disorder, unspecified (principal); K21.9 Gastro-esophageal reflux disease without esophagitis; E66.9 Obesity, unspecified; Z68.26 Body mass index [BMI] 26.0-26.9, adult; Z91.018 Allergy to other foods; Z72.0 Tobacco use; Z88.1 Allergy status to other antibiotic agents; Z91.013 Allergy to seafood; Z91.030 Bee allergy status; Z88.2 Allergy status to sulfonamides
CPT/HCPCS: 99283; A9270